=== PATIENT | male | born 1960 | race Caucasian/White ===

== ENCOUNTER 2018-08-28 05:41 | Inpatient (IN) | payer OTHER ==
[~2018-08-28] VITALS: Ht 188 cm; Wt 104.8 kg
[2018-08-28] MEDS ORDERED: LACTATED RINGERS 1,000 ML IV SCH (06:29)
[2018-08-28] MEDS ORDERED: LIDOCAINE-MPF 1%, 2ML INFIL ONE (06:30)
[2018-08-28] MEDS ORDERED: CALCIUM PO (06:35)
[2018-08-28] MEDS ORDERED: VITAMIN B12 PO (06:35)
[2018-08-28] MEDS ORDERED: CHOL200078 PO (06:35)
[2018-08-28] MEDS ORDERED: LOSA100T7 PO (06:35)
[2018-08-28] MEDS ORDERED: ASPI-496 PO (06:35)
[2018-08-28] MEDS ORDERED: CYCL-259 PO (06:35)
[2018-08-28] MEDS ORDERED: MIDAZOLAM 1 MG/ML, 2ML ONE (06:44)
[2018-08-28] MEDS ORDERED: LIDOCAINE-MPF 2% ,5ML ONE (06:45)
[2018-08-28] MEDS ORDERED: FENTANYL PF 250 MCG/5ML ONE (06:45)
[2018-08-28] MEDS ORDERED: PROPOFOL 10 MG/ML, 20ML ONE (06:46)
[2018-08-28] MEDS ORDERED: SUCCINYLCHOLINE 20 MG/ML, 10ML ONE (06:47)
[2018-08-28] MEDS ORDERED: DEXAMETHASONE 4 MG/ML, 1ML ONE ×2 (06:48)
[2018-08-28] MEDS ORDERED: ROCURONIUM 10MG/ML,5ML ONE (06:48)
[2018-08-28] MEDS ORDERED: CEFAZOLIN 1,000 MG ONE ×2 (06:48)
[2018-08-28] MEDS ORDERED: BUPIVACAINE/PF-EPI 0.5% 1:200K ONE (06:50)
[2018-08-28] MEDS ORDERED: THROMBIN SPRAY 20,000 UNIT SPRAY TP ONE (06:50)
[2018-08-28] MEDS ORDERED: BACITRACIN OINT 500U/GM, 15 GM ONE (06:50)
[2018-08-28] MEDS ORDERED: BACITRACIN 50,000 UNIT ONE (06:51)
[2018-08-28] MEDS ORDERED: KETAMINE 50 MG/ML, 10ML ONE (06:59)
[2018-08-28 07:00] VITALS: BP 152/100
[2018-08-28] MEDS ORDERED: ACETAMINOPHEN 500 MG TABLET ONE (07:15)
[2018-08-28] MEDS ORDERED: GABAPENTIN 300 MG CAPSULE ONE (07:16)
[2018-08-28] MEDS ORDERED: ONDANSETRON ODT 8 MG ONE (07:16)
[2018-08-28] MEDS ORDERED: PROPOFOL 50 ML ONE ×4 (07:23→12:28)
[2018-08-28] MEDS ORDERED: ONDANSETRON 2MG/ML, 2ML IV PRN ×2 (07:30→13:30)
[2018-08-28] MEDS ORDERED: ONDANSETRON ODT 8 MG PO ONE (07:30)
[2018-08-28] MEDS ORDERED: FENTANYL PF 100 MCG/2ML IV PRN (07:30)
[2018-08-28] MEDS ORDERED: LORazepam 2 MG/ML, 1ML IVPush PRN (07:30)
[2018-08-28] MEDS ORDERED: OXYcodone 5 MG/5 ML ORAL.SOL UDC PO PRN (07:30)
[2018-08-28] MEDS ORDERED: LABETALOL 5MG/ML, 20ML IV PRN (07:30)
[2018-08-28] MEDS ORDERED: GABAPENTIN 300 MG CAPSULE PO ONE (07:30)
[2018-08-28] MEDS ORDERED: ACETAMINOPHEN 500 MG TABLET PO ONE (07:30)
[2018-08-28] MEDS ORDERED: hydrALAzine 20 MG/ML, 1ML IV PRN (07:30)
[2018-08-28] MEDS ORDERED: KETOROLAC 30 MG/1 ML ONE (07:45)
[2018-08-28] MEDS ORDERED: HYDR-3307 PO (07:52)
[2018-08-28] MEDS ORDERED: THROMBIN 5,000 UNIT VIAL TP ONE (08:26)
[2018-08-28] MEDS ORDERED: CALCIUM CHLORIDE 10%, 10ML SYR IVPush ONE (08:47)
[2018-08-28] MEDS ORDERED: OXYcodone 5 MG/5 ML ORAL.SOL UDC ONE (10:53)
[2018-08-28] MEDS ORDERED: MEPERIDINE/PF 50 MG/ML ONE (10:53)
[2018-08-28] MEDS: MEPERIDINE/PF 25MG/0.5ML IVPush PRN ×2 (10:54→11:01)
[2018-08-28] MEDS ORDERED: HYDROmorphone 2 MG/ML, 1ML ONE (11:06)
[2018-08-28] MEDS: HYDROmorphone 2 MG/ML, 1ML IVPush PRN ×4 (11:09→11:40)
[2018-08-28] MEDS ORDERED: HYDROmorphone PCA 30 MG/30 ML IV PRN (11:30)
[2018-08-28] MEDS ORDERED: METHOCARBAMOL 1,000 MG in DEXTROSE 5% 100 ML IV ONE (11:30)
[2018-08-28] MEDS ORDERED: PHARMACY MAY ADJ FOR RENAL FX MC PRN (13:00)
[2018-08-28 13:02] VITALS: BP 140/100
[2018-08-28] MEDS ORDERED: MAGNESIUM HYDROXIDE 8%, 30ML UDC PO PRN (13:30)
[2018-08-28] MEDS ORDERED: DIPHENHYDRAMINE 50 MG/ML, 1ML IVPush PRN (13:30)
[2018-08-28] MEDS ORDERED: LORazepam 1MG TABLET PO PRN (13:30)
[2018-08-28] MEDS ORDERED: BISACODYL 10 MG SUPP PR PRN (13:30)
[2018-08-28] MEDS ORDERED: HYDROcodone/APAP 5/325 TABLET PO PRN (13:30)
[2018-08-28] MEDS ORDERED: morphine SULFATE 10 MG/ML, 1ML IV PRN (13:30)
[2018-08-28] MEDS ORDERED: DIPHENHYDRAMINE 50 MG/ML, 1ML IM PRN (13:30)
[2018-08-28] MEDS ORDERED: DIPHENHYDRAMINE 50 MG CAPSULE PO PRN (13:30)
[2018-08-28] MEDS ORDERED: HYDROcodone/APAP 10/325 MG TABLET PO PRN (13:30)
[2018-08-28] MEDS ORDERED: CYCLOBENZAPRINE 10 MG TABLET PO PRN (13:30)
[2018-08-28] MEDS ORDERED: PROMETHAZINE 25 MG/ML, 1ML IM PRN (13:30)
[2018-08-28] MEDS: NS + 20MEQ KCL 1,000 ML IV SCH (14:47)
[2018-08-28] MEDS: CEFAZOLIN PMX 2GM/50ML 50 ML IVPB SCH ×2 (15:54→23:57)
[2018-08-28] MEDS ORDERED: LOSARTAN 50MG TABLET PO SCH (18:00)
[2018-08-28] MEDS ORDERED: LOSARTAN 50MG TABLET ONE (18:17)
[2018-08-28] MEDS: METHOCARBAMOL 750 MG in DEXTROSE 5% 100 ML IV SCH (20:06)
[2018-08-28 21:14] VITALS: BP 136/84
[2018-08-29 00:19] VITALS: BP 136/82
[2018-08-29] MEDS: METHOCARBAMOL 750 MG in DEXTROSE 5% 100 ML IV SCH ×2 (04:12→11:30)
[2018-08-29 04:20] VITALS: BP 124/71
[2018-08-29] MEDS: NS + 20MEQ KCL 1,000 ML IV SCH (04:30)
[2018-08-29 07:55] VITALS: BP 107/49
[2018-08-29] MEDS ORDERED: CYANOCOBALAMIN 1,000 MCG TABLET PO SCH (09:00)
[2018-08-29] MEDS ORDERED: CHOLECALCIFEROL 1,000 UNIT TABLET PO SCH (09:00)
[2018-08-29] MEDS ORDERED: CALCIUM CARBONATE 500 MG TABLET PO SCH (09:00)
[2018-08-29] MEDS ORDERED: SENNA/DOCUSATE TABLET PO SCH (09:00)
[2018-08-29] MEDS ORDERED: LOSARTAN 50MG TABLET PO SCH (09:00)
[2018-08-29] MEDS ORDERED: HYDR-3307 PO (10:49)
[2018-08-29] MEDS ORDERED: DOCU-131 PO (10:49)
[2018-08-29] MEDS ORDERED: ENOXAPARIN 30 MG/0.3 ML SQ SCH (11:00)
[2018-08-29 12:46] VITALS: BP 147/82
[2018-08-30] MEDS ORDERED: METHOCARBAMOL 750 MG TABLET PO SCH (19:30)
== END 2018-08-29 13:43 | disposition home or self-care (01) | DRG 455 ==
LOC: ORIP 05:41 → 4NOR 12:30 → DCLOUNGE 08-29 13:29
PROVIDERS: ADMIT Neurological Surgery; ATTEND Neurological Surgery
PROC: 0SG3071 Fusion of Lumbosacral Joint with Autologous Tissue Substitute, Posterior Approach, Posterior Column, Open Approach (ICD-10-PCS; 2018-08-28)
PROC: 0SB40ZZ Excision of Lumbosacral Disc, Open Approach (ICD-10-PCS; 2018-08-28)
PROC: 07DR3ZZ Extraction of Iliac Bone Marrow, Percutaneous Approach (ICD-10-PCS; 2018-08-28)
PROC: 4A11X4G Monitoring of Peripheral Nervous Electrical Activity, Intraoperative, External Approach (ICD-10-PCS; 2018-08-28)
PROC: 0SG30A0 Fusion of Lumbosacral Joint with Interbody Fusion Device, Anterior Approach, Anterior Column, Open Approach (ICD-10-PCS; principal; 2018-08-28 07:30)
DX: M48.061 Spinal stenosis, lumbar region without neurogenic claudication (principal); E66.9 Obesity, unspecified; F17.290 Nicotine dependence, other tobacco product, uncomplicated; G89.29 Other chronic pain; I10 Essential (primary) hypertension; M25.78 Osteophyte, vertebrae; M51.37 Other intervertebral disc degeneration, lumbosacral region; Z68.29 Body mass index [BMI] 29.0-29.9, adult; M54.16 Radiculopathy, lumbar region
CPT/HCPCS: 72100; 74018; 90656; C1713; G0378; J0690; J1100; J1170; J1650; J1885; J2175; J2250; J2704; J3010; J3480; J3490; Q0162; C1763; J0330; J2800